=== PATIENT | female | born 1975 | race Caucasian/White ===

== ENCOUNTER 2020-01-11 11:52 | Emergency (ER) | payer SELFPAY ==
[~2020-01-11] VITALS: Ht 157.5 cm; Wt 88.5 kg
[2020-01-11 11:58] VITALS: Ht 157.5 cm; Wt 88.5 kg
[2020-01-11 13:30] VITALS: BP 115/65
== END 2020-01-11 13:30 | disposition home or self-care (01) ==
LOC: ED 11:52
DX: N76.4 Abscess of vulva (principal); R10.9 Unspecified abdominal pain
CPT/HCPCS: 82962; 90715; J2001